=== PATIENT | male | born 1980 | race Two or more races ===

== ENCOUNTER 2024-12-13 19:04 | Emergency (ER) | payer OTHER ==
[~2024-12-13] VITALS: Ht 160 cm; Wt 70.8 kg
[2024-12-13] MEDS ORDERED: LOTREL 10-20 M1 EACH (19:24)
[2024-12-13] MEDS ORDERED: KETOROLAC TROMETHAMINE 15 MG VIAL IM STA (19:54)
[2024-12-13] MEDS ORDERED: DEXAMETHASONE SODIUM PHOSPHATE 4 MG/ML VIAL IM STA (21:15)
[2024-12-13] MEDS ORDERED: ORPHENADRINE CITRATE 30 MG/ML AMPUL IM STA (21:16)
[2024-12-13] MEDS ORDERED: PEPCID AC20 MG PO (21:34)
[2024-12-13] MEDS ORDERED: KETO10TA2 PO (21:34)
[2024-12-13] MEDS ORDERED: NORFLEX100MG PO (21:34)
== END 2024-12-13 21:59 | disposition home or self-care (01) ==
LOC: ER 19:05
DX: G89.11 Acute pain due to trauma (principal); M25.571 Pain in right ankle and joints of right foot; I10 Essential (primary) hypertension; Z91.013 Allergy to seafood